=== PATIENT | female | born 1995 | race Caucasian/White ===

== ENCOUNTER → 2017-08-13 | Outpatient (CLI) | payer OTHER ==
--- NOTE | 2017-08-13 16:13 | RADIOLOGY IMAGING REPORT ---
FACILITY: [facility] [place] PATIENT NAME: Melody Kerns : 1995 MR: [id number] V: [id number] EXAM DATE: ORDERING PHYSICIAN: BING CADENA TECHNOLOGIST: Location: [facility] Patient: Melody Kerns : 1995 Visit/Account:[id number] Date of Sevice: 08/13/2017 Exam type: HAND COMPLETE RIGHT History: Pain for past six weeks, mostly right index finger Comparison: None. Findings: There is no evidence of acute fracture, dislocation, significant arthritic change, lytic or blastic b one lesion involving the right hand. No radiopaque soft tissue foreign bodies are seen. IMPRESSION: 1. No osteoarticular abnormality of the right hand is seen Report Dictated By: Mounika Gould MD at 08/13/2017 4:06 PM Report E-Signed By: Mounika Gould MD at 08/13/2017 4:08 PM WSN:[email or web address]
== END ==
LOC: RAD 15:19
PROVIDERS: ATTEND Physician Assistant
DX: M79.641 Pain in right hand (principal)